=== PATIENT | female | born 1965 | race Caucasian/White ===

== ENCOUNTER → 2023-01-27 | Emergency (ER) | payer OTHER ==
[~2023-01-27] VITALS: Ht 165.1 cm; Wt 80.3 kg
[~2023-01-27] MED LIST: ARTHRITIS PAIN650 M3 PO; FLUTICASONE-SAL12 GM INH; HYDROXYCHLOROQ200 MG PO; LEVOFLOXACIN500 MG PO; PREDNISONE5 M1 PO; VENTOLIN HFA18 GM INH
[2023-01-27 06:36] VITALS: BP 103/61
== END ==
LOC: ED 03:13
DX: J18.9 Pneumonia, unspecified organism (principal); M06.9 Rheumatoid arthritis, unspecified; Z20.822 Contact with and (suspected) exposure to COVID-19; Z88.1 Allergy status to other antibiotic agents; Z88.5 Allergy status to narcotic agent; Z88.8 Allergy status to other drugs, medicaments and biological substances; Z79.899 Other long term (current) drug therapy
CPT/HCPCS: 36415; 71045; 80053; 81001; 83605; 85025; 85651; 86140; 87502; 96365; 96366; 99283-25; A9270; C9803; G0480; J1956; J7121; U0002

== ENCOUNTER 2024-07-02 07:48 | Emergency (ER) | payer OTHER ==
[~2024-07-02] VITALS: Ht 165.1 cm; Wt 82.0 kg
[2024-07-02] MEDS ORDERED: CITALOPRAM HBR10 MG PO (08:00)
[2024-07-02] MEDS ORDERED: LEFLUNOMIDE20 MG PO (08:00)
[2024-07-02 08:37] LABS: BASOPHILS 0.5 % (0-2); EOSINOPHILS 0.9 % (0-6); HEMATOCRIT 38.4 % (35.0-50.0); HEMOGLOBIN 12.9 g/dL (12.0-18.0); LYMPHOCYTES 18.4 % (24-44); MCH 33.6 (27-36); MCHC 33.5 g/dl (30-36); MCV 100.5 fl (81-99); MONOCYTES 8.5 % (0-12); NEUTROPHILS 71.7 % (39-80); PLATELET COUNT 257 K/uL (140-440); RBC 3.82 M/ul (4.3-5.7); RDW 13.8 (10.5-15.0)
[2024-07-02 08:39] LABS: ALBUMIN 3.7 g/dL (3.4-5.0); ALBUMIN/GLOBULIN RATIO 1.03 (1.1-2.4); BILIRUBIN, TOTAL 0.4 ng/dL (0.2-1.0); BUN/CREATININE RATIO 13.88 (6.0-28.6); CALCIUM 9.2 mg/dL (8.5-10.1); CREATININE, SERUM 0.72 mg/dL (0.55-1.02); PROTEIN, TOTAL 7.3 g/dL (6.4-8.2)
[2024-07-02] MEDS ORDERED: SCOPOLAMINE 1 MG/3 DAYS PATCH 1 EACH TDSY TD SCH (09:00)
[2024-07-02] MEDS ORDERED: TRANSDERM-SCOP1 EACH TD (09:24)
[2024-07-02 09:46] VITALS: BP 142/80
--- NOTE | 2024-07-04 14:39 | EKG ---
[facility] [address] [facility] [place] [address] Signed Normal sinus rhythm Normal ECG No previous ECGs available Confirmed by Jazz Staples MD ([id number]) on 07/04/2024 2:39:34 PM Electronically Signed By: JAZZ STAPLES DO 07/04/24 1439 PATIENT NAME: MEGAN MONTANO Electrocardiogram DATE OF : 69 PHYSICIAN: JAZZ STAPLES DO REPORT #: [id number] REPORT IS CONFIDENTIAL AND NOT TO BE RELEASED WITHOUT AUTHORIZATION
== END 2024-07-02 09:49 | disposition home or self-care (01) ==
LOC: ED 07:48
PROVIDERS: Emergency Medicine
DX: R42 Dizziness and giddiness (principal); Z88.2 Allergy status to sulfonamides; Z88.1 Allergy status to other antibiotic agents; Z88.5 Allergy status to narcotic agent; Z88.8 Allergy status to other drugs, medicaments and biological substances; Z79.899 Other long term (current) drug therapy
CPT/HCPCS: 36415; 70450; 80053; 85025; 93005; 93010; 99284-25